=== PATIENT | male | born 1970 | race American Indian/Alaskan Native ===

== ENCOUNTER 2017-02-23 18:43 | Emergency (ER) | payer BC, OTHER ==
[2017-02-23 19:57] LABS: Basophils % (Auto) 0.2 % (0.0-1.8); Hematocrit 41.4 % (35.5-45.6); Hemoglobin 13.5 gm/dl (11.8-15.2); Mean Corpuscular HGB Conc 33 % (32-34); Mean Corpuscular Hemoglobin 28 pg (28-32); Mean Corpuscular Volume 86 fl (84-94); Platelet Count 185 K/mm3 (140-440); Red Blood Count 4.83 M/mm3 (3.65-5.03); Red Cell Distribution Width 13.3 % (13.2-15.2); White Blood Count 8.2 K/mm3 (4.5-11.0)
[2017-02-23 20:10] LABS: BUN/Creatinine Ratio 16.66; Blood Urea Nitrogen 15 mg/dL (9-20); Calcium 9.1 mg/dL (8.4-10.2); Carbon Dioxide 25 mmol/L (22-30); Glucose 116 mg/dL (75-100)
[2017-02-23 20:11] LABS: Anion Gap 18 mmol/L; Chloride 103.4 mmol/L (98-107); Potassium 4.3 mmol/L (3.6-5.0); Sodium 142 mmol/L (137-145)
[2017-02-24] MEDS ORDERED: TORADOL IM ONE (02:23)
[2017-02-24] MEDS ORDERED: TYLENOL PO ONE (02:23)
[2017-02-24 02:29] VITALS: BP 127/85
--- NOTE | 2017-02-24 06:24 | Emergency Department Report ---
HPI - General Chief Complaint: Neuro Symptoms/Deficit Time Seen by Provider: 02/23/17 22:44 - HPI HPI: The patient is a 46-year-old male who presents for evaluation of left arm pain. The patient reports left proximal anterior arm pain since 3 PM earlier today, sharp in quality, 5/10 in severity, radiating distally down the arm. He says that he has experienced similar symptoms in the past. Patient denies trauma to the left arm, neck, head, headache, neck pain or stiffness, redness, swelling, or paresthesia the left arm. ED Past Medical Hx - Past Medical History Hx Hypertension: Yes Hx GERD: Yes Additional medical history: carpal tunnel - Surgical History Additional Surgical History: neck repair, back surgery, - Social History Smoking Status: Current Every Day Smoker Substance Use Type: None - Medications Home Medications: Home Medications Medication Instructions Recorded Confirmed Last Taken Type Esomeprazole Magnesium [Nexium] 1 tab PO DAILY 07/03/14 02/23/17 02/23/17 History HYDROcodone/APAP 5-325 [[place] 1 each PO Q6HR PRN #20 tablet 07/03/14 02/23/17 Rx 5/325] amLODIPine [Norvasc] 10 mg PO DAILY 07/03/14 02/23/17 02/23/17 History HYDROcodone/APAP 7.5-325 [[place] 1 each PO Q8HR PRN #10 tablet 02/24/17 Unknown Rx 7.5-325 mg TAB] Ibuprofen [Motrin] 800 mg PO Q8HR PRN #15 tablet 02/24/17 Unknown Rx ED Review of Systems ROS: Stated complaint: SHARP PAIN LT ARM /NUMB LT HAND Other details as noted in HPI Constitutional: denies: fever ENT: denies: throat or neck pain Respiratory: denies: cough, shortness of breath Cardiovascular: denies: chest pain Endocrine: denies unexplained weight loss or gain Gastrointestinal: denies: abdominal pain, nausea Genitourinary: denies: dysuria Musculoskeletal: reports left arm pain denies: leg swelling Skin: denies: rash Neurological: denies: headache Hematological/Lymphatic: denies: easy bleeding or easy bruising Psych: denies sadness or hopelessness Physical Exam - Physical Exam Vital Signs: Vital Signs 02/23/17 02/23/17 02/23/17 19:20 22:47 22:57 Temperature 98.7 F Pulse Rate 89 83 Respiratory 18 26 H 18 Rate Blood Pressure 132/88 132/88 Blood Pressure 132/88 [Left] O2 Sat by Pulse 99 99 100 Oximetry Physical Exam: General: well-nourished, well-developed, no acute distress Head: Normocephalic, atraumatic Eyes: normal sclera ENT: Mucous membranes are pink and moist Neck: No midline cervical or thoracic spinous tenderness to palpation present, no spinous step-off or obvious deformity, no pain in the negative listed with rotation, flexion or extension of the neck Respiratory: Breath sounds equal bilaterally, no wheezing, rales, or rhonchi Cardio: S1 and S2 present, no murmurs, rubs, gallops, capillary refill is brisk Abdomen: Normoactive bowel sounds, soft abdomen, no rigidity, no guarding or rebound tenderness Musc: Left mid biceps tenderness to palpation present, no sensation or motor deficit possibly or distally in the left arm, distal pulses intact as well No pitting edema Skin: No rash Neuro: no facial drooping, normal speech Psych: Normal affect ED Course Vital Signs 02/23/17 02/23/17 02/23/17 19:20 22:47 22:57 Temperature 98.7 F Pulse Rate 89 83 Respiratory 18 26 H 18 Rate Blood Pressure 132/88 132/88 Blood Pressure 132/88 [Left] O2 Sat by Pulse 99 99 100 Oximetry ED Medical Decision Making - Lab Data Result diagrams: 02/23/17 19:39 02/23/17 19:39 - Medical Decision Making The patient was seen and examined by myself. The patient is placed on a traffic monitor specialist and continuous pulse ox. On initial evaluation, the patient was found to be in no distress. Evaluation orders were placed. The patient is given IM Toradol for his pain. Lab results were unremarkable. Evaluation findings are not concerning for cervical radiculopathy at this time. The patient was reevaluated and reported that their symptoms were markedly improved. The patient is stable for discharge with outpatient follow-up. The patient is given follow-up and return instructions. The patient expressed understanding and agreed with the plan. The patient is discharged in stable condition. Critical care attestation.: If time is entered above; I have spent that time in minutes in the direct care of this critically ill patient, excluding procedure time. ED Disposition Clinical Impression: Left upper arm pain Peripheral neuropathy Qualifiers: Peripheral neuropathy type: mononeuropathy, unspecified Qualified Code(s): G58.9 - Mononeuropathy, unspecified Disposition: DISCHARGED TO HOME OR SELFCARE Is pt being admited?: No Does the pt Need Aspirin: No Condition: Stable Instructions: Peripheral Neuropathy (ED), Musculoskeletal Pain (ED) Prescriptions: HYDROcodone/APAP 7.5-325 [[place] 7.5-325 mg TAB] 1 each PO Q8HR PRN #10 tablet PRN Reason: Pain Ibuprofen [Motrin] 800 mg PO Q8HR PRN #15 tablet PRN Reason: Pain Referrals: PRIMARY CARE, [Primary Care Provider] - 3-5 Days Forms: Work/School Release Form(ED) Time of Disposition: 02:23
== END 2017-02-24 03:03 | disposition home or self-care (01) ==
LOC: ED 18:43
DX: G58.9 Mononeuropathy, unspecified (principal); I10 Essential (primary) hypertension; K21.9 Gastro-esophageal reflux disease without esophagitis; F17.200 Nicotine dependence, unspecified, uncomplicated
CPT/HCPCS: 36415; 80048; 85025; 93005; 93010; 96372; 99284; J1885

== ENCOUNTER 2021-05-26 09:12 | Outpatient (CLI) | payer BC ==
--- NOTE | 2021-05-26 11:50 | Magnetic Resonance Report ---
MR lumbar spine wo con INDICATION / CLINICAL INFORMATION: 50 years Male; PARESTHESIA OF SKIN, BACK AND BILAT. LEG PAIN. TECHNIQUE: Multisequence, multiplanar images of the lumbar spine were obtained. COMPARISON: None available. FINDINGS: ALIGNMENT: No significant abnormality. VERTEBRAE:Grossly normal marrow signal and vertebral body height for age. VISUALIZED SPINAL CORD: No significant abnormality. Conus is grossly normal in appearance. INTERVERTEBRAL DISCS: Desiccation seen at L3-4 and L4-5. [id number] ANALYSIS: L1-2: No significant abnormality. L2-3: No significant abnormality. L3-4: Mild to moderate disc bulge. Small posterocentral disc extrusion seen with disc material extend ing to the infrapedicular level of L3. Perhaps mild facet hypertrophy and mild canal narrowing. Moder ate foraminal narrowing is seen bilaterally with encroachment upon L3 nerves-right greater than left. No definitive impingement. L4-5: Partial right hemilaminectomy suggested. Mild to moderate disc bulge. Mild, bilateral facet hyp ertrophy. Moderate to marked foraminal narrowing on the right from disc disease and spondylosis, comb ined with facet and ligamentum flavum hypertrophy. There is encroachment upon a borderline flattening of the right L4 nerve. [id number] foraminal narrowing on the left without significant sequela. Postcontrast imaging may be of benefit to ensure the findings in the right foraminal region are not related to scar/granulation tissue. L5-S1: Mild facet hypertrophy. PARASPINAL SOFT TISSUES: No significant abnormality. ADDITIONAL FINDINGS: None. IMPRESSION: 1. Degenerative and postoperative changes of the lumbar spine as described above. Most marked finding s appear to be at L4-5, followed by L3-4. Please correlate with dermatomal distribution of patient's symptoms, if present. Postcontrast imaging may be of benefit, as described above. Signer Name: Matthias Schulte MD, III Signed: 05/26/2021 11:45 AM Workstation Name: [id number]
== END 2021-05-26 09:13 | disposition home or self-care (01) ==
LOC: MRI 09:12
PROVIDERS: ATTEND Internal Medicine
DX: M51.36 Other intervertebral disc degeneration, lumbar region (principal); R20.2 Paresthesia of skin; M47.817 Spondylosis without myelopathy or radiculopathy, lumbosacral region
CPT/HCPCS: 72148